=== PATIENT | male | born 1970 | race African-American/Black ===

== ENCOUNTER 2022-02-15 03:45 | Emergency (ER) | payer MEDICAID ==
[~2022-02-15] VITALS: Ht 170.2 cm; Wt 67.3 kg
[2022-02-15 03:57] VITALS: BP 121/82
== END 2022-02-15 06:00 | disposition left against medical advice (07) ==
LOC: ER 03:45
DX: Z53.21 Procedure and treatment not carried out due to patient leaving prior to being seen by health care provider (principal)

== ENCOUNTER 2022-12-12 18:13 | Emergency (ER) | payer MEDICAID, OTHER ==
[~2022-12-12] VITALS: Ht 170.2 cm; Wt 71.0 kg
[2022-12-12 18:28] VITALS: BP 111/69; PULSE 116; RESP 20; TEMP 98; O2SAT 97
[2022-12-12] MEDS ORDERED: DOXY100T2 MT (19:15)
[2022-12-12] MEDS ORDERED: NAP5EC MT (19:15)
[2022-12-12] MEDS ORDERED: MUPI15CR11 TP (19:18)
[2022-12-12] MEDS ORDERED: DOXYCYCLINE HYCLATE 100MG CAPSULE PO ONE (19:30)
== END 2022-12-12 20:13 | disposition home or self-care (01) ==
LOC: ER 18:13
DX: L73.9 Follicular disorder, unspecified (principal)
CPT/HCPCS: 99283

== ENCOUNTER 2023-12-26 06:22 | Emergency (ER) | payer MEDICAID, OTHER ==
[~2023-12-26] VITALS: Ht 170.2 cm; Wt 71.0 kg
[~2023-12-26 06:22] MED LIST: DOXY100T2 MT; MUPI15CR11 TP; NAP5EC MT
[2023-12-26 06:48] VITALS: TEMP 98; O2SAT 100
[2023-12-26 06:49] VITALS: BP 123/85; PULSE 89; RESP 16; O2SAT 97
[2023-12-26] MEDS ORDERED: KETOROLAC 30MG/ML VIAL IM ONE (08:30)
[2023-12-26] MEDS ORDERED: METHOCARBAMOL 500MG TABLET PO ONE (08:30)
== END 2023-12-26 11:52 | disposition left against medical advice (07) ==
LOC: ER 06:22
DX: M54.40 Lumbago with sciatica, unspecified side (principal); Z98.890 Other specified postprocedural states
CPT/HCPCS: 99281; J1885